=== PATIENT | female | born 1980 | race Caucasian/White ===

== ENCOUNTER 2018-10-22 19:59 | Emergency (ER) | payer OTHER, MEDICAID ==
[~2018-10-22] VITALS: Ht 157.5 cm; Wt 114.8 kg
[2018-10-22] MEDS ORDERED: VITAMIN C500 M1 (20:10)
[2018-10-22] MEDS ORDERED: ESSENTIAL DAIL1 EACH (20:10)
[2018-10-22] MEDS ORDERED: SERTRALINE HCL100 MG (20:10)
[2018-10-22] MEDS ORDERED: NAPROSYN500 M1 PO (21:18)
[2018-10-22] MEDS ORDERED: NORCO 5-325 TA1 EACH PO (21:18)
[2018-10-22 21:31] VITALS: BP 154/55
== END 2018-10-22 21:34 | disposition home or self-care (01) ==
LOC: M.ERS 19:59
DX: S63.501A Unspecified sprain of right wrist, initial encounter (principal); S70.01XA Contusion of right hip, initial encounter; F32.9 Major depressive disorder, single episode, unspecified; Z98.890 Other specified postprocedural states; W00.0XXA Fall on same level due to ice and snow, initial encounter; Y93.51 Activity, roller skating (inline) and skateboarding; Y92.89 Other specified places as the place of occurrence of the external cause; Y99.8 Other external cause status

== ENCOUNTER 2018-10-28 20:49 | Emergency (ER) | payer OTHER, MEDICAID ==
[~2018-10-28] VITALS: Ht 157.5 cm; Wt 68.0 kg
[~2018-10-28 20:49] MED LIST: ESSENTIAL DAIL1 EACH; NAPROSYN500 M1 PO; NORCO 5-325 TA1 EACH PO; SERTRALINE HCL100 MG; VITAMIN C500 M1
[2018-10-28] MEDS ORDERED: MOBIC7.5 MG (21:08)
[2018-10-28] MEDS ORDERED: PREDNISONE 10 M10 MG (21:08)
[2018-10-28] MEDS ORDERED: TRAMADOL 50 MG50 MG PO (21:51)
[2018-10-28 22:09] VITALS: BP 123/81
== END 2018-10-28 22:09 | disposition home or self-care (01) ==
LOC: M.ERS 20:49
DX: S63.591A Other specified sprain of right wrist, initial encounter (principal); F32.9 Major depressive disorder, single episode, unspecified; F90.9 Attention-deficit hyperactivity disorder, unspecified type; Z91.048 Other nonmedicinal substance allergy status; Z98.890 Other specified postprocedural states; W00.0XXA Fall on same level due to ice and snow, initial encounter; Y92.89 Other specified places as the place of occurrence of the external cause; Y93.89 Activity, other specified; Y99.8 Other external cause status

== ENCOUNTER 2019-04-05 21:42 | Emergency (ER) | payer OTHER, MEDICAID ==
[~2019-04-05] VITALS: Ht 157.5 cm; Wt 70.8 kg
[~2019-04-05 21:42] MED LIST changes: +MOBIC7.5 MG; +PREDNISONE 10 M10 MG; +TRAMADOL 50 MG50 MG PO
[2019-04-05] MEDS ORDERED: IBUPROFEN 600600 M1 PO (23:03)
[2019-04-05 23:19] VITALS: BP 125/81
== END 2019-04-05 23:21 | disposition home or self-care (01) ==
LOC: M.ERS 21:42
DX: M75.32 Calcific tendinitis of left shoulder (principal); F32.9 Major depressive disorder, single episode, unspecified; F90.9 Attention-deficit hyperactivity disorder, unspecified type; Z98.890 Other specified postprocedural states; Z91.048 Other nonmedicinal substance allergy status